=== PATIENT | female | born 1970 | race African-American/Black ===

== ENCOUNTER 2022-03-05 17:02 | Emergency (ER) | payer SELFPAY ==
[~2022-03-05] VITALS: Ht 170.2 cm; Wt 90.7 kg
--- NOTE | 2022-03-05 17:07 | NUR ---
BIBA BLS TO ER BED 4
[2022-03-05 17:13] VITALS: BP 151/64
--- NOTE | 2022-03-05 17:30 | NUR ---
will from long-term c/o anxiety. denies sob or cp. denies si or hi, vss, nad, on room air, states she was just released from long-term. [id number]
--- NOTE | 2022-03-05 18:24 | NUR ---
urine collected and sent to lab
[2022-03-05] MEDS: LORazepam 1 MG TAB PO ONE (18:28)
[2022-03-05] MEDS: KETOROLAC 60 MG/2 ML VIAL IM ONE (18:30)
[2022-03-05] MEDS ORDERED: CIPR500T4 PO (18:57)
[2022-03-05] MEDS ORDERED: IBUP-2213 PO (18:57)
[2022-03-05] MEDS ORDERED: ATA25 PO (18:57)
--- NOTE | 2022-03-05 19:04 | NUR ---
pt calm and resting
[2022-03-05 19:23] VITALS: BP 131/76
--- NOTE | 2022-03-05 19:23 | NUR ---
Patient given written and verbal discharge instructions and verbalizes understanding. Given copies of tests performed during visit. Patient is awake, alert and oriented. Ambulatory with steady gait. Refuses offer of care home placement. Given list of available shelters in surrounding areas.
== END 2022-03-05 19:23 | disposition home or self-care (01) ==
LOC: MED 17:02
DX: N39.0 Urinary tract infection, site not specified (principal); M54.50 Low back pain, unspecified; F41.9 Anxiety disorder, unspecified; F15.90 Other stimulant use, unspecified, uncomplicated; Z98.84 Bariatric surgery status
CPT/HCPCS: 81002; 81025; 96372; 99283; J1885